=== PATIENT | male | born 1940 | race Caucasian/White ===

== ENCOUNTER → 2017-01-27 | Outpatient (CLI) | payer OTHER | LOC: GMAH 12:40 | PROVIDERS: ATTEND Family Medicine | DX: Z00.00 Encounter for general adult medical examination without abnormal findings (principal); Z12.5 Encounter for screening for malignant neoplasm of prostate; R53.83 Other fatigue | CPT/HCPCS: 84443; 84550; G0103 ==

== ENCOUNTER → 2017-08-22 | Outpatient (CLI) | payer OTHER | END | disposition home or self-care (01) | LOC: GMAH 10:39 | PROVIDERS: ATTEND Family Medicine | DX: R97.20 Elevated prostate specific antigen [PSA] (principal) ==

== ENCOUNTER 2017-10-22 11:13 | Inpatient (IN) | payer OTHER ==
[2017-10-22] MEDS ORDERED: PROMETHAZINE HCL INJ 12.5 MG in SODIUM CHLORIDE 0.9% 50ML 50 ML IVPB ONE (11:36)
[2017-10-22] MEDS ORDERED: ACETAMINOPHEN SUPPOSITORY 650 MG PR ONE (11:36)
[2017-10-22] MEDS ORDERED: SODIUM CHLORIDE 0.9% 1000ML 1,000 ML IVS ONE ×3 (11:36→15:18)
--- NOTE | 2017-10-22 11:41 | ED.PDOC ---
History of Present Illness - General Chief Complaint: GI Problem Stated Complaint: N/V Time Seen by Provider: 10/22/17 11:24 Source: patient Exam Limitations: no limitations Additional Information: PT C/O N/V SINCE YESTERDAY. HAD VOMITING X 1 YESTERDAY THEN BEGAN TO FEEL BETTER. BEGAN VOMITING AGAIN EARLY THIS AM AND HAS CONTINUED. BILIOUS TYPE EMESIS, NO COFFEE GROUND - History of Present Illness Severity: moderate Improving Factors: nothing Worsening Factors: nothing Associated Symptoms: fever/chills Allergies/Adverse Reactions: Allergies NO KNOWN ALLERGY Allergy (Unverified 09/16/14 09:48) Home Medications: Ambulatory Orders Aspirin [Baby Aspirin] 162 mg PO DAILY 09/16/14 Clopidogrel Bisulfate [Plavix] 75 mg PO DAILY 09/16/14 Lisinopril 5 mg PO DAILY 09/16/14 Metformin HCl 500 mg PO BID 09/16/14 Nadolol 10 mg PO DAILY 09/16/14 Simvastatin [Zocor] 20 mg PO DAILY 09/16/14 Venlafaxine HCl [Effexor Xr] 150 mg PO DAILY 09/16/14 Review of Systems - Review of Systems Constitutional: States: chills, fever, other - SUBJECTIVE AT HOME. FEBRILE IN ED EENTM: States: no symptoms reported Respiratory: Denies: cough, short of breath, wheezing Cardiology: Denies: chest pain, palpitations, syncope Gastrointestinal/Abdominal: States: nausea, vomiting. Denies: abdominal pain, diarrhea Genitourinary: States: no symptoms reported Musculoskeletal: States: no symptoms reported Skin: States: no symptoms reported Neurological: States: no symptoms reported Endocrine: States: no symptoms reported Hematologic/Lymphatic: States: no symptoms reported Past Medical History (General) - Patient Medical History Hx Cardiac Disorders: Yes Hx Congestive Heart Failure: No Hx Diabetes: Yes Family Medical History - Family History Mother Family History: No Known Physical Exam - Physical Exam General Appearance: Alert, No apparent distress Eye Exam: bilateral normal Ears, Nose, Throat: other - MOIST MM Neck: non-tender, full range of motion, supple Respiratory: lungs clear, normal breath sounds Cardiovascular/Chest: no murmur, tachycardia Gastrointestinal/Abdominal: non tender, soft, no organomegaly, other - HYPOACTIVE BS Back Exam: normal inspection, no CVA tenderness Extremity: normal range of motion, non-tender, normal inspection Neurologic: alert, normal mood/affect Skin Exam: normal color, warm/dry Lymphatic: no adenopathy Progress - Progress Progress: 10/22/17 13:01 PT FEELS BETTER, NO FURTHER VOMITING, VS IMPROVING, FLUIDS INFUSING. D/W GENI BUNCH WILL ADMIT - EKG/XRAY/CT EKG: Sinus, Tachy - RATE 119, LAD, NL INTERVALS, RBBB, nonspecific ST T wave Chg - NO OLD FOR COMPARISON XRAY: chest - SMALL SHAAN LL INFILTRATES Departure - Departure Clinical Impression: Pyelonephritis, Hypoxemia Sepsis Qualifiers: Sepsis type: sepsis due to unspecified organism Qualified Code(s): A41.9 - Sepsis, unspecified organism Pneumonia Qualifiers: Pneumonia type: due to unspecified organism Laterality: bilateral Lung location : lower lobe of lung Qualified Code(s): J18.9 - Pneumonia, unspecified organism Time of Disposition: 13:13 - D/W FERNANDA ARECHIGA ADMIT Disposition: Admit Patient Condition: Fair Departure Forms: ED Discharge - Pt. Copy, Patient Portal Self Enrollment Home Medications: Ambulatory Orders Aspirin [Baby Aspirin] 162 mg PO DAILY 09/16/14 Clopidogrel Bisulfate [Plavix] 75 mg PO DAILY 09/16/14 Lisinopril 5 mg PO DAILY 09/16/14 Metformin HCl 500 mg PO BID 09/16/14 Nadolol 10 mg PO DAILY 09/16/14 Simvastatin [Zocor] 20 mg PO DAILY 09/16/14 Venlafaxine HCl [Effexor Xr] 150 mg PO DAILY 09/16/14 Critical Care Note - Critical Care Note Total Time (mins): 40 Comments: EVENT: HYPOXEMIA, VOMITING, SEPSIS SYSTEMS: CARDIOVASCULAR FINDINDS: SATS 84%, PULSE 130'S, TEMP 102.9, INTERVENTION: FLUIDS, ABX, ADMISSION
--- NOTE | 2017-10-22 11:52 | RAD ---
Procedure: XR CHEST 1 VIEW Exam Date: 10/22/2017 11:36 AM [employer] Ordering Provider: Sandip Mcclelland Clinical Indication: FEVER, VOMITING Comparison: None Findings: Lungs are clear. Heart size is within normal limits. Coronary stent is present. No acute osseous abnormality. Impression: No acute pulmonary process. Electronically signed by: Michelle Phillips MD 10/22/2017 11:52 AM [employer]
[2017-10-22] MEDS ORDERED: PROMETHAZINE HCL INJ 25 MG/ML VIAL ONE (12:01)
[2017-10-22] MEDS ORDERED: SODIUM CHLORIDE 0.9% 50ML 50 ML ONE (12:01)
[2017-10-22] MEDS ORDERED: AZITHROMYCIN IV 500 MG in SODIUM CHLORIDE 0.9% 250ML 250 ML IVPB ONE (12:31)
[2017-10-22] MEDS ORDERED: cefTRIAXone SODIUM 1 GM in SODIUM CHL 0.9% 50ML MIN-BAG+ 50 ML IVPB ONE (12:31)
[2017-10-22] MEDS ORDERED: SODIUM CHL 0.9% 50ML MIN-BAG+ 50 ML IVPB ONE (12:44)
[2017-10-22] MEDS ORDERED: cefTRIAXone SODIUM 1 GM VIAL ONE (12:44)
--- NOTE | 2017-10-22 14:07 | HP ---
SUPERVISING PHYSICIAN: Abel Bond M.D. CHIEF COMPLAINT: Nausea and vomiting. HISTORY OF PRESENT ILLNESS: Mr. Madden is a 77 year-old male patient that presented to the Emergency Room after he had been having significant episodes of nausea and vomiting in the last 24 hours. He denies any coffee ground emesis and notes that he feels better after he has vomited, but shortly thereafter he again becomes nauseated. He has been unable to tolerate any oral diet and is becoming dehydrated. It was noted after visiting with the patient that he had a prostate biopsy performed by Dr. Meadows this past and is currently taking Amoxicillin post procedure. His laboratory studies in the E. R. initially showed that he had a leukocytosis of 16,300 with a left shift. His H&H was within normal limits at 14.6 and 43.4. Chemistries showed renal function with a BUN of 26, creatinine 1.27. Lactic acid was elevated at 2.8. Liver functions were all within normal limits except for a slightly elevated total bilirubin at 1.5. Electrolytes showed just a mild hyponatremia with sodium 134. Urinalysis was significant for protein, ketones, large amount of blood, small leukocyte esterase and on microscopic revealing too numerous to count RBCs, too numerous to count WBCs and bacteria was obscured by the number of RBCs. A chest x-ray was performed in the Emergency Department and per radiology interpretation there were no acute pulmonary processes seen. His vital signs on presentation to the Emergency Department showed he was febrile with a temperature of 102.9 with pulse 119, blood pressure 141/89. He was satting 87% on nasal cannula at rest. With nasal cannula at 4 liters he improved to 98%. Dr. Mcclelland, E. R. physician, felt that the patient was showing on radiographic studies some possible mild left lower infiltrative process and given that he was having significant desaturation events and showing signs of sepsis with the elevated fever and leukocytosis that the patient had possibly had community acquired pneumonia. It was of note that the patient did not inform Dr. Mcclelland of the fact that he had had a prostate biopsy done in the last [address] Mcclelland also felt like that the patient was showing a significant urinary tract infection and was possibly having development of pyelonephritis with concerns for early sepsis. The patient now is going to be admitted to the Medical/Surgical floor. Blood cultures were repeated in the Emergency Department as well as a lactic acid prior to initiation of fluids and antibiotics. Antibiotics initially in the Emergency Department included Rocephin and azithromycin. He was admitted in stable condition to the Medical/ Surgical floor for continuation of treatment for concern for pneumonia as well as early sepsis process secondary to underlying urinary tract infection concerning for pyelonephritis versus possible etiology of infection due to recent prostatic biopsy. PAST MEDICAL HISTORY: 1. Prostate cancer diagnosed in [address] Meadows with a recent biopsy on 10/20/17 with pathology pending. 2. Coronary artery disease with previous myocardial infarction times 1 in 2001 requiring multiple stents. 3. History of diverticulosis. 4. History of renal stones in 2005. 5. Type 2 diabetes diagnosed in 2011. 6. History of previous GI bleed, unknown cause. 7. Hypertension. PAST SURGICAL HISTORY: 1. Cholecystectomy laparoscopic in 2005. 2. Coronary artery stent placement in 2001 and 2004. 3. Bilateral knee replacements in 1994 and 2002. 4. Prostate biopsy by Dr. Meadows on 10/20/17. HOME MEDICATIONS: 1. Niacin 1,000 mg at bedtime. 2. Metoprolol 25 mg daily. 3. Lipitor 20 mg at bedtime. 4. Metformin 500 mg b.i.d. 5. Effexor XR 75 mg b.i.d. 6. Aspirin 81 mg daily. ALLERGIES: NO KNOWN DRUG ALLERGIES. FAMILY HISTORY: SOCIAL HISTORY: REVIEW OF SYSTEMS: CONSTITUTIONAL: As noted in history of present illness, fevers, chills subjective at home with the patient showing 102 temperature in the E. R. on admission. HEENT: No reported headaches, nasal congestion, ear aches or sore throat. RESPIRATORY: Denies any cough, shortness of breath or wheezing. CARDIOVASCULAR: Denies any chest pains, palpitations or syncopal episodes. GASTROINTESTINAL: As noted in the History of Present Illness, nausea and vomiting but denies any abdominal pain or diarrhea. GENITOURINARY: Denies any hematuria, dysuria or other urinary symptoms, but a history of prostate cancer followed by Dr. Meadows with a recent biopsy on . NEUROLOGIC: Denies any headaches, syncopal episodes or any other neurological deficits. PHYSICAL EXAMINATION: VITAL SIGNS: On initial presentation to the Emergency Department showed he was febrile with 102.9 temperature, pulse 119, blood pressure 141/89, respirations 20, satting 87% initially on nasal cannula with 2 liters, improved to 90% with 4 liters. Admission weight 81.7 kg. GENERAL: The patient appears to be comfortable in no acute distress. Somewhat dehydrated but well nourished. HEENT: Tympanic membranes are clear bilaterally. Oropharynx was pink. Mucosal membranes were slightly dry. There are no lesions. NECK: Supple, non-tender with full range of motion. No jugular venous distention. CHEST: Lungs were clear to auscultation bilaterally without any rhonchi, wheezing or rales. CARDIOVASCULAR: Regular rate and rhythm with no appreciable murmurs, gallops, or rubs. ABDOMEN: Non-tender, soft with positive bowel sounds. BACK: There was no CVA tenderness. EXTREMITIES: No clubbing, cyanosis or edema. NEUROLOGIC: He was alert and oriented times three. Cranial nerves II-XII are grossly intact. Facial features were symmetrical. Extraocular movements are within normal limits. There is no notable nystagmus. LABORATORY: CBC showed a leukocytosis of 16,300 with hemoglobin 14.6, hematocrit 43.4. Differential shows a left shift. Platelet count 171,000. Chemistries showed mild hyponatremia with sodium 134, potassium was normal at 3.6, BUN 26, creatinine 1.27, glucose 210. Lactic acid initially was 2.8, calcium 8.8. Total bilirubin slightly elevated at 1.5. Liver functions other than the bilirubin showed to be within normal limits. Urinalysis showed 100 protein, 15 ketones, large amount of blood with small amount of leukocyte esterase with microscopic showing too numerous to count RBCs. WBCs and bacteria were obscured by RBCs. MICROBIOLOGY: Urine culture is pending. Blood cultures times 2 are pending. Influenza swabs by PCR for A and B were both negative. RADIOLOGY: Chest x-ray per radiology interpretation showed no acute pulmonary process. ASSESSMENT: 1. Urinary tract infection with concerns for developing pyelonephritis with the patient showing nausea and vomiting, severe leukocytosis and febrile with the patient having a recent history of a prostate biopsy and having been on prophylactic antibiotics to include Amoxicillin. 2. Sepsis with an elevated lactic acid, elevated temperature, tachycardia and hypoxia secondary to #1 with concerns for possible early pneumonia on the left lower lobe likely community acquired. 3. Nausea and vomiting likely secondary to underlying urinary tract infection and early sepsis, and again concerns for developing pyelonephritis. There is also the possibility that the patient is not tolerating the Amoxicillin that was prescribed post procedure for the prostate biopsy. 4. Mild renal insufficiency likely prerenal azotemia secondary to underlying dehydration. 5. Questionable early pneumonia left lower lobe with the patient having leukocytosis and showing hypoxemia requiring supplemental oxygen to maintain O2 levels above 92% with the patient having no history of chronic obstructive pulmonary disease. 6. History of prostate cancer diagnosed in [address] Meadows with a recent prostate biopsy with concerns for a possible source of infection from recent procedure. 7. Type 2 diabetes mellitus on oral therapy. 8. History of myocardial infarctions times 2. 9. History of hyperlipidemia. 10. History of gastrointestinal bleeds in the past with unknown etiology requiring blood transfusions. 11. History of renal stones in 2005. PLAN: The patient will be admitted to the Medical/Surgical floor for initiation of treatment with antibiotic therapy with concerns for sepsis and developing pyelonephritis versus early pneumonia. Blood cultures were completed and lactic acid initially in the E. R. Antibiotics were then initiated with Rocephin and azithromycin. When he gets to the floor, if he has not already, given that the patient is showing signs for pyelonephritis, will certainly change him to Levaquin and await culture results and hold off on starting azithromycin. He will be on oxygen as needed. He has not shown any respiratory symptoms and will hold off any breathing treatments at this point, and treat the urinary tract infection aggressively. Will plan to do a CT of his abdomen and pelvic with contrast and without contrast to further evaluate for possible source of infection, possible prostatic abscess. Will need to touch base with Dr. Meadows at some point, either tomorrow or Tuesday, in regards to the findings of the CT and the urinary tract infection. Will anticipate length of stay to be at least 2 to 3 days. He will get fluids and will give him another bolus of saline and recheck his lactic acid in 4 hours, and then readjust his fluids accordingly. Again, will anticipate hopefully discharging in 2 to 3 days. Until then, will monitor closely and treat appropriately. Once discharged, he will need close clinical followup with both his primary care provider, Dr. Correia, as well as Dr. Meadows, his urologist. #[id number] [facility]ITALK[facility]
[2017-10-22] MEDS ORDERED: SODIUM CHLORIDE 0.9% (FLUSH) 10 ML SYG IV PRN (15:40)
[2017-10-22] MEDS ORDERED: DEXTROSE 50% 25 GM/50 ML SYG IV PRN (15:40)
[2017-10-22] MEDS ORDERED: GLUCAGON INJ 1 MG VIAL SUBCU PRN (15:40)
[2017-10-22] MEDS ORDERED: ONDANSETRON INJ 4 MG/2 ML VIAL IV PRN (15:40)
[2017-10-22] MEDS ORDERED: IV SET AND CAP CHANGE INJ INJ SCH (16:00)
[2017-10-22] MEDS: levoFLOXacin 750MG IV 750 MG in PREMIX BAG 1 BAG IVPB SCH (16:14)
[2017-10-22] MEDS ORDERED: INSULIN LISPRO 100 UNITS/ML PEN SUBCU SCH (16:30)
[2017-10-22] MEDS ORDERED: ACETAMINOPHEN 325 MG TAB PO PRN (17:35)
--- NOTE | 2017-10-22 17:52 | CT ---
PROCEDURE: Abdomen/Pelvis w/wo Contrast CLINICAL HISTORY: 77 years Male UTI/ sepsis s/p Prostate Biopsy 10/20/2017 COMPARISON: None. TECHNIQUE: Contiguous axial images were obtained through the abdomen and pelvis both prior to and during the infusion of IV contrast. Reformatted images obtained. Multiplanar reformatted images obtained. This exam was performed according to our department optimization program which includes automated exposure control, adjustment of the mA and/or kv according to patient size and/or use of iterative reconstruction technique. FINDINGS: Unenhanced kidneys appear unremarkable. There is a 1 cm cyst in the right kidney. No hydronephrosis. No filling defects are noted in the ureters. Incomplete distention of the urinary bladder. Prostate is enlarged. Small amount of stranding around the prostate which is nonspecific but may be related to recent biopsy. There is also an ill-defined focus of low attenuation along the left aspect of the prostate which may be related to area of developing infection or abscess, mass or edema from the biopsy. No significant fluid is noted in the pelvis. Diverticulosis without evidence of diverticulitis. Liver spleen and pancreas are unremarkable. No adrenal masses. Absent gallbladder. No evidence of extravasation of the small amount of contrast is present in the urinary bladder. No evidence of free intraperitoneal gas. IMPRESSION: Enlarged prostate with some surrounding stranding which is nonspecific and may be related to recent biopsy. Prostatitis is not excluded. There is also an ill-defined focus of low attenuation along the left aspect of the prostate which may be related to area of developing infection or abscess, mass or edema from the biopsy. Unremarkable kidneys Diverticulosis Additional changes as above Electronically signed by: Emily Simons 10/22/2017 5:51 PM STAFF HOME THERAPY RN
[2017-10-22] MEDS ORDERED: GENTAMICIN PER PHARMACY IVPB SCH (18:30)
[2017-10-22] MEDS ORDERED: GENTAMICIN PREMIX 80MG/100ML 100 ML IVPB ONE (20:15)
[2017-10-22] MEDS ORDERED: GENTAMICIN SULFATE INJ 80 MG/2 ML VIAL ONE (20:16)
[2017-10-22] MEDS: GENTAMICIN SULFATE IVPB SCH (20:23)
[2017-10-22] MEDS: GENTAMICIN IVPB SCH (20:23)
[2017-10-22] MEDS: KCL 20MEQ/0.45% NS 1,000 ML IVS PRN (20:24)
[2017-10-23] MEDS: INSULIN LISPRO 100 UNITS/ML PEN SUBCU SCH ×5 (00:10→21:00)
--- NOTE | 2017-10-23 06:10 | PCM.CORE ---
Physician DVT/VTE - Nurse DVT Assessment & Total Each Risk Factor Represents 3 Points: Age over 75 years, Hx of DVT/PE, Medical PT with Hx of TX, CHF, Severe infection/sepsis Each Risk Factor Represents 1 Point: Medical PT at Bed Rest DVT Assessment Score: 10 - 5 or more Very High Risk Treatments: Early Ambulation *, Sequential Compression Device Pharmacological: Enoxaparin 40mg SQ Daily
[2017-10-23] MEDS ORDERED: AMOXICILLIN & POT CLAVULANATE 875 MG TAB PO SCH (09:00)
[2017-10-23] MEDS ORDERED: metFORMIN HCL 500 MG TAB PO SCH (09:00)
[2017-10-23] MEDS: ENOXAPARIN SODIUM 40 MG/0.4 ML SYG SUBCU SCH (09:33)
[2017-10-23] MEDS: METOPROLOL SUCCINATE XL 25 MG TAB PO SCH (09:33)
[2017-10-23] MEDS: VENLAFAXINE XR 75 MG CAP PO SCH ×2 (09:33→20:13)
[2017-10-23] MEDS: KCL 20MEQ/0.45% NS 1,000 ML IVS PRN ×2 (10:02→23:56)
[2017-10-23] MEDS: levoFLOXacin 750MG IV 750 MG in PREMIX BAG 1 BAG IVPB SCH (14:58)
--- NOTE | 2017-10-23 16:17 | PN ---
DATE: 10/23/17 SUPERVISING PHYSICIAN: Abel Bond M.D. SUBJECTIVE: The patient is sitting in his hospital bed. He has just had lunch. He has no complaints of chest pain, nausea, vomiting, diarrhea, constipation, flank pain or chest pain. He slept very well last night. He had questions about his followup with Dr. Meadows and his questions were answered. OBJECTIVE: VITAL SIGNS: T max 24 hours is 99.6, pulse rate 95, it has been as high as 105. Blood pressure is 112/62, respiratory rate has been as high as 22 , it is now 20. O2 sat is 95% on 2 liters nasal cannula. RESPIRATORY: Essentially clear to auscultation bilaterally. CARDIAC: Regular rate and rhythm. GASTROINTESTINAL: Abdomen is soft, nondistended, non-tender. There is no flank pain. Bowel sounds are positive. EXTREMITIES: No cyanosis, clubbing or edema. NEUROLOGIC: He is awake, alert and oriented times three. LABORATORY: White count has improved to 12.3 with a hemoglobin at 11.7 and hematocrit at 34.9, neutrophils are 87.3, platelets 120. Electrolytes are basically within normal limits with the exception of his glucose is slightly elevated at 118 and calcium is slightly low at 7.7. His followup lactic acid from yesterday was 1.7, initially in the Emergency Room it was 2.8. Preliminary urine culture shows gram-negative rods and preliminary blood cultures show no growth after 24 hours. RADIOLOGY: CT of the abdomen and pelvis per radiology interpretation show enlarged prostate with some surrounding stranding which is nonspecific and may be related to recent biopsy. Prostatitis is not excluded. There is also an ill -defined focus of low attenuation along the left aspect of the prostate which may be related to area of developing infection or abscess, mass or edema from the biopsy. Shows unremarkable kidneys and diverticulosis. All other labs and films have been reviewed via the EMR. ASSESSMENT: 1. Urinary tract infection with concerns for developing pyelonephritis with the patient showing nausea and vomiting, severe leukocytosis and febrile with the patient having a recent history of a prostate biopsy. He has been on prophylactic antibiotics to include Amoxicillin presently on Levaquin and Gentamicin. 2. Sepsis with an elevated lactic acid, elevated temperature, tachycardia and hypoxia secondary to #1 with concerns for possible early pyelonephritis as the patient has a clear chest x-ray. 3. Nausea and vomiting likely secondary to underlying urinary tract infection and early sepsis, again concerns for developing pyelonephritis. 4. Mild renal insufficiency likely prerenal azotemia secondary to underlying dehydration. 5. Questionable early pneumonia left lower lobe with the patient having leukocytosis and showing hypoxemia requiring supplemental oxygen to maintain O2 levels above 92% with the patient having no history of chronic obstructive pulmonary disease. 6. History of prostate cancer diagnosed in [address] Meadows with a recent prostate biopsy and concerns for a possible source of infection from recent procedure. Dr. Bond spoke with Dr. Meadows yesterday and Dr. Meadows recommended placing the patient on Gentamicin and Levaquin until followup with Dr. Meadows. 7. Type 2 diabetes mellitus on oral therapy. 8. History of myocardial infarctions times 2. 9. History of hyperlipidemia. 10. History of gastrointestinal bleeds in the past with unknown etiology. 11. History of renal stones in 2005. PLAN: We will continue present supportive care. I have ordered routine labs in the morning as well as a followup chest x-ray. I do not believe that there is any pneumonia in that his hypoxia and tachypnea are most likely related to his early sepsis, but will do another chest x-ray to rule out any lung involvement. I have consulted Dr. Meadows to see the patient on Tuesday when he is at the hospital. Will need to contact his office to let him know that he will be seeing the patient when he is here on Tuesday. I have encouraged ambulation and good pulmonary hygiene. We will continue to follow the patient as needed. Dr. Bond is the collaborating physician available for consultation. #[id number] [facility]
[2017-10-23] MEDS ORDERED: GENTAMICIN PREMIX 80MG/100ML 100 ML IVPB ONE (19:25)
[2017-10-23] MEDS ORDERED: GENTAMICIN SULFATE INJ 80 MG/2 ML VIAL ONE (19:26)
[2017-10-23] MEDS ORDERED: ASPIRIN (CHEWABLE) 81 MG TAB ONE (19:27)
[2017-10-23] MEDS ORDERED: ATORVASTATIN 20 MG TAB PO ONE (19:28)
[2017-10-23] MEDS: GENTAMICIN SULFATE IVPB SCH (20:12)
[2017-10-23] MEDS: GENTAMICIN IVPB SCH (20:12)
[2017-10-23] MEDS: ATORVASTATIN 20 MG TAB PO SCH (20:13)
[2017-10-23] MEDS: ASPIRIN (CHEWABLE) 81 MG TAB PO SCH ×2 (20:13→20:19)
[2017-10-23] MEDS: NIACIN 500 MG TAB PO SCH (21:00)
--- NOTE | 2017-10-24 07:10 | RAD ---
EXAM DESCRIPTION: Chest,2 Views CLINICAL HISTORY: hypoxia, tachypnea, leukocytosis COMPARISON: October 22, 2017 FINDINGS: The cardiomediastinal silhouette is unremarkable. There is subsegmental atelectasis or scarring in the right upper lung. No airspace consolidation. Mild blunting the left costophrenic angle suggests the possibility of a tiny left-sided effusion. The lung volumes are within normal range. There is a questionable small nodule projecting over the right lung base, although this is more likely related to artifact from superimposed bronchovascular markings. There is no pneumothorax or acute fracture. IMPRESSION: Tiny left-sided effusion, but no evidence of pneumonia or other acute intrathoracic abnormality. Questionable right basilar lung nodule. Chest CT is suggested for further evaluation. Electronically signed by: Branden Mcclelland MD 10/24/2017 7:09 AM [facility]
[2017-10-24] MEDS: METOPROLOL SUCCINATE XL 25 MG TAB PO SCH (08:34)
[2017-10-24] MEDS: ENOXAPARIN SODIUM 40 MG/0.4 ML SYG SUBCU SCH (08:35)
[2017-10-24] MEDS: VENLAFAXINE XR 75 MG CAP PO SCH ×2 (08:35→21:10)
[2017-10-24] MEDS: INSULIN LISPRO 100 UNITS/ML PEN SUBCU SCH ×4 (08:36→21:15)
[2017-10-24] MEDS ORDERED: cefTRIAXone SODIUM 1 GM VIAL ONE (11:05)
[2017-10-24] MEDS: KCL 20MEQ/0.45% NS 1,000 ML IVS PRN (12:39)
[2017-10-24] MEDS: levoFLOXacin 750MG IV 750 MG in PREMIX BAG 1 BAG IVPB SCH (15:16)
--- NOTE | 2017-10-24 15:46 | PN ---
SUPERVISING PHYSICIAN: Oscar Castaneda MD DATE: 10/24/17 SUBJECTIVE: The patient is sitting up in a chair at this time with IV fluids infusing. He has no complaints of pain or discomfort at this time. I discussed with him plan of care including continued IV antibiotics given his culture results. OBJECTIVE: VITAL SIGNS: Blood pressure 138/72. Heart rate 85. Respiratory rate 15. Temperature 98.8. Oxygen saturation 97%. GENERAL: Mr. Madden is a 77-year-old male patient in no active distress at this time. HEENT: Normocephalic, atraumatic. Pupils are equal and reactive. No nasal drainage. Moist buccal mucosa. NECK: Supple. Midline trachea. No jugular venous distention at this time. CHEST: Symmetrical with equal rise and fall of the chest with inspiration and expiration. Lungs sounds are clear to auscultation bilaterally. CARDIOVASCULAR: Regular rate and rhythm. Normal S1, S2. ABDOMEN: Soft. Positive bowel sounds. GENITOURINARY: Deferred. LOWER EXTREMITIES: No edema. NEUROLOGIC: The patient is alert. LABORATORY: Labs and films are reviewed via the EMR. White count is now 10.2, hemoglobin 11.3, hematocrit 33.3, platelet count 115. He did not have a chemistry today. RADIOLOGY: The chest x-ray shows a small left sided pleural effusion and a possible right basilar lung nodule. CT has been recommended for followup. MICROBIOLOGY: Urine culture has come back with Pseudomonas aeruginosa and is sensitive to the two antibiotics that he is currently getting, which are gentamicin and Levaquin. He does have gram negative rods in his blood. However , the final identification of this bacteria is not available yet. ASSESSMENT: 1. Urinary tract infection with Pseudomonas infection, which is likely also what is causing his bacteremia. 2. Mild acute kidney injury. 3. Small pleural effusion. 4. Right base lung nodule. 5. Status post recent prostate biopsy with likely acute prostatitis. 6. Diabetes mellitus, type 2. PLAN: Continue gentamicin and Levaquin. Gentamicin peak and trough will be drawn tonight and pharmacy is managing this. Awaiting final identification of the bacteremia on the blood culture bottles. Dr. Meadows actually called here and stated he did not need to see him here, and he could see outpatient. However, given the bacteremia, we may get an infectious disease evaluation, but both antibiotics being utilized at this time are effective on his Pseudomonas, so we should only see further improvement. Given the fact that the x-rays show a right base lung nodule and recommended CT scan, I would imagine this can be done outpatient with Dr. Correia, his primary care physician. I am going to repeat his labs in the morning and ensure we are still going the right direction. #[id number] MTDD
[2017-10-24] MEDS ORDERED: GENTAMICIN PREMIX 80MG/100ML 100 ML IVPB ONE (20:08)
[2017-10-24] MEDS ORDERED: GENTAMICIN SULFATE INJ 80 MG/2 ML VIAL ONE (20:09)
[2017-10-24] MEDS: GENTAMICIN IVPB SCH (20:20)
[2017-10-24] MEDS: GENTAMICIN SULFATE IVPB SCH (20:20)
[2017-10-24] MEDS: ASPIRIN (CHEWABLE) 81 MG TAB PO SCH (21:10)
[2017-10-24] MEDS: NIACIN 500 MG TAB PO SCH (21:10)
[2017-10-24] MEDS: ATORVASTATIN 20 MG TAB PO SCH (21:11)
[2017-10-25] MEDS: KCL 20MEQ/0.45% NS 1,000 ML IVS PRN (03:20)
[2017-10-25] MEDS ORDERED: levoFLOXacin 750MG IV 0 ML IVPB ONE (07:31)
[2017-10-25] MEDS: METOPROLOL SUCCINATE XL 25 MG TAB PO SCH (07:56)
[2017-10-25] MEDS: VENLAFAXINE XR 75 MG CAP PO SCH (07:56)
[2017-10-25] MEDS: ENOXAPARIN SODIUM 40 MG/0.4 ML SYG SUBCU SCH (07:56)
[2017-10-25] MEDS: INSULIN LISPRO 100 UNITS/ML PEN SUBCU SCH ×2 (07:57→11:34)
[2017-10-25 10:39] VITALS: BP 119/70; TEMP 98.3; O2SAT 99
--- NOTE | 2017-10-25 15:09 | DS ---
SUPERVISING PHYSICIAN: Oscar Castaneda MD ADMISSION DIAGNOSIS: 1. Urinary tract infection. 2. Sepsis. 3. Nausea and vomiting with acute kidney injury. 4. Possible left lower lobe pneumonia. 5. Type 2 diabetes mellitus. DISCHARGE DIAGNOSIS: 1. Pseudomonas urinary tract infection with associated Pseudomonas bacteremia. 2. Mild acute kidney injury. 3. Small pleural effusion. 4. Right base lung nodule. 5. Status post recent prostate biopsy with possible prostatitis. 6. Diabetes mellitus. HOSPITAL COURSE: Mr. Madden is a 77-year-old male patient who presented to the Emergency Room with severe nausea and vomiting 24 hours prior to admission. At that time, he had also notified us that he had a recent prostate biopsy by Dr. Meadows. In the Emergency Room, his workup showed labs that showed a leukocytosis of 16,000 and mildly elevated BUN and creatinine of 26 and 1.27 respectively. Lactate was also done which was elevated at 2.8. Urinalysis was consistent with urinary tract infection as well. He had cultures done and the cultures grew out Pseudomonas in his urine first and then eventually, the blood cultures came back with Pseudomonas as well. During this time, Dr. Meadows out of [place], who is the patient's urologist, was notified of the patient being here. He suggested placing the patient on gentamicin as well as Levaquin at that time. The patient progressed well and his leukocytosis resolved as well as BUN and creatinine improved. His clinical status improved as well and he remained afebrile. Initially, Dr. Meadows was going to see the patient on Tuesday, however, Dr. Meadows reviewed the case and stated he could just be discharged on p.o. antibiotics. I did discuss the case with Dr. Tam, however , and felt like the patient could probably benefit from some IV antibiotics given the bacteremia. She agreed and we are setting the patient up for outpatient Levaquin as well as gentamicin. She will see the patient on Tuesday as well in [place]. The patient had been notified of the IV infusions as well as pending appointment with Dr. Tam. Additionally, the chest x-ray did right a right base lung nodule. This will need to be followed up as an outpatient with repeat x-ray and likely CT of the chest. CONDITION ON DISCHARGE: Good. DISCHARGE MEDICATIONS: No new p.o. medications. However, he is going to have outpatient IV antibiotics with Levaquin and gentamicin. Followup appointments with his primary care physician, Dr. Correia, as well as followup appointment with Dr. Tam on Tuesday. #[id number] TYLER
== END 2017-10-25 14:15 | disposition home or self-care (01) | DRG 871 ==
LOC: ER 11:13 → MS 14:06
PROVIDERS: ADMIT Nurse Practitioner Family; ATTEND Nurse Practitioner
PROC: BW21YZZ Computerized Tomography (CT Scan) of Abdomen and Pelvis using Other Contrast (ICD-10-PCS; principal; 2017-10-22)
DX: A41.52 Sepsis due to Pseudomonas (principal); J18.9 Pneumonia, unspecified organism; N17.9 Acute kidney failure, unspecified; J91.8 Pleural effusion in other conditions classified elsewhere; E87.1 Hypo-osmolality and hyponatremia; N41.0 Acute prostatitis; N12 Tubulo-interstitial nephritis, not specified as acute or chronic; R91.1 Solitary pulmonary nodule; E11.9 Type 2 diabetes mellitus without complications; I25.10 Atherosclerotic heart disease of native coronary artery without angina pectoris; I10 Essential (primary) hypertension; R09.02 Hypoxemia; N28.9 Disorder of kidney and ureter, unspecified; E78.5 Hyperlipidemia, unspecified; Z96.653 Presence of artificial knee joint, bilateral; I25.2 Old myocardial infarction; Z95.5 Presence of coronary angioplasty implant and graft; Z85.46 Personal history of malignant neoplasm of prostate; Z79.82 Long term (current) use of aspirin; Z79.84 Long term (current) use of oral hypoglycemic drugs; Z79.899 Other long term (current) drug therapy

== ENCOUNTER → 2017-10-31 | Outpatient (CLI) | payer OTHER ==
--- NOTE | 2017-10-31 20:42 | CT ---
EXAM DESCRIPTION: Chest w/o Contrast : Computed Tomography. CLINICAL HISTORY: PULMONARY NODULE COMPARISON: Chest x-ray 10/24/2017. CT abdomen and pelvis 10/22/2017. TECHNIQUE: Spiral-axial scans at 5.0 mm intervals through the lungs and thorax without IV contrast. 2.5 mm lung algorithm axial reconstructions. Coronal and sagittal 2.0 Mm reconstructions. Total Exam DLP: 517.63 mGy-cm. This exam was performed according to our departmental dose-optimization program which includes automated exposure control, adjustment of the mA and/or kV according to patient size and/or use of iterative reconstruction technique; to reduce radiation dose to as low as reasonably achievable (ALARA). FINDINGS: Pleural calcified nodule in the posterior left lower lobe. Soft tissue nodule with mean diameter 3 mm at a slightly higher level (series 4, image 62). No other abnormal nodules. No pleural effusion or pneumothorax. No mass or acute infiltrate. Included thyroid gland heterogeneously dense. No soft tissue masses at the base of the neck. No gross soft tissue masses in the mediastinum or hilum but sensitivity is decreased without IV contrast. Calcifications in the jamal areas suggest MR treated metastatic nodes or prior inflammatory nodes. No enlarged lymph nodes in the axillary regions. Coronary artery calcifications. Thoracic aorta atherosclerotic calcifications. Calcifications spleen and liver. Calcification in the abdominal aorta. Included adrenal glands are unremarkable. No fluid in the subdiaphragmatic peritoneal space. Multiple levels of bridging osteophytes on the thoracic spine with ankylosis. Arthrosis in the sternoclavicular joints and the manubriosternal joint. IMPRESSION: 1. Subpleural soft tissue nodule approximately 3 mm in the left lower lobe. Consider follow-up CT scan in 12 month interval if patient at high risk for pulmonary disease. This is according to [facility] Best Practice guidelines intraoperative from 2017 Fleischner Society recommendations for follow-up of single soft tissue pulmonary nodule. Please see below.* 2. Calcifications in the spleen and liver mediastinum suggest prior granulomatous disease. 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 Is there history of ankylosing spondylitis? *2017 Fleischner Society Recommendations for Single Solid Lung Nodule Follow-Up based on size (average of long- and short-axis diameters) <6 mm Low-Risk Patient: No routine follow-up <6 mm High-Risk Patient: Optional CT at 12 months 6-8 mm Low-Risk Patient: CT at 6-[address] at 18-24 months 6-8 mm High-Risk Patient: CT at 6-[address] at 18-24 months >8 mm Low-Risk Patient: Consider CT, PET/CT or tissue sampling at 3 months >8 mm High-Risk Patient: Same as for low-risk patient Electronically signed by: Ayaan Jeter MD 10/31/2017 8:41 PM [employer]
== END | disposition home or self-care (01) ==
LOC: CT 10:34
PROVIDERS: ATTEND Family Medicine
DX: R91.1 Solitary pulmonary nodule (principal)

== ENCOUNTER → 2017-12-20 | Outpatient (CLI) | payer OTHER | LOC: LAB.O 07:01 | PROVIDERS: ATTEND Internal Medicine Infectious Disease | DX: A41.9 Sepsis, unspecified organism (principal); N12 Tubulo-interstitial nephritis, not specified as acute or chronic ==